=== PATIENT | male | born 1955 | race Caucasian/White ===

== ENCOUNTER 2016-09-16 01:38 | Emergency (ER) | payer OTHER ==
[~2016-09-16] VITALS: Ht 175.3 cm; Wt 141.8 kg
[2016-09-16 01:41] VITALS: BP 158/99; PULSE 90; RESP 20; O2SAT 92
--- NOTE | 2016-09-16 01:57 | ED.REPORT ---
HPI-Dyspnea / Wheezing Date of Service Sep 16, 2016 ED Provider: Alberto Pa MD Patient is a 60 year old male with a history of hypertension who presents to the ED with worsening shortness of breath and chest discomfort that began 1 week ago, waking him from sleep at 1am. Patient states that his symptoms began 1 week ago with cough and chest congestion. Patient reports a productive cough with brown and green sputum. He is unable to lay flat on his back due to shortness of breath, sleeping in his chair instead. He reports increased swelling in his legs but denies calf tenderness. Patient states that he has gained 12 lb in the past 4 days. The patient also has a red, swollen, and tender area on his right chest. He was concerned that he had broken a rib or torn something due to the force of his cough. He states that the chest pain he experiences with cough is especially severe. He was seen at [facility] 2 days ago for this complaint. However the x-ray of his chest was negative. He was given #10 hydrocodone and was discharged home. The patient states that this medication barely helped his symptoms The patient reports a history of reactive airways but denies asthma. He denies smoking cigarettes or marijuana. He has been unable to go to work since onset of symptoms. He did not have a seasonal influenza vaccine this year. Nursing Notes Stated Complaint: SHORT OF BREATH Chief Complaint: Respiratory Distress Nursing Notes Reviewed: Yes Allergies: Coded Allergies: No Known Allergies (Unverified , 09/16/16) Scheduled Benzonatate (Benzonatate) 200 Mg Capsule 200 MG PO TID Hydrochlorothiazide (Hydrochlorothiazide) 12.5 Mg Capsule 12.5 MG PO DAILY Scheduled PRN oxyCODONE-Acetaminophen 5-325 mg (oxyCODONE-Acetaminophen 5-325 mg) 1 Each Tablet 1-2 TAB PO Q6H PRN PRN For Pain General Time Seen by MD: 01:51 Chief Complaint Shortness of breath Hx Obtained From: Patient Arrived By: Walk-in Sudden in Onset?: No Onset Occurred: 1 week ago Symptom Duration: Since onset Location: : Chest right Quality: Painful Severity: Current: Moderate Severity: Maximum: Moderate Recent Healthcare: Recent doctor visit Similar Sx Previous: Yes Past Medical History Past Medical History Reports: Hypertension, Denies: Asthma Past Surgical History none reported Smoking History Never Smoker Social History Drug Use: Denies drug use Other Social History: Good social support, , Local resident Ambulatory Status Independent Review of Systems Respiratory: Reports: Non-productive cough, Prod cough, brown, Prod cough, green, Shortness of breath Cardiovascular: Reports: Chest pain Musculoskeletal: Reports: Extremity swelling, Denies: Extremity pain Complete sys rev & neg: except as marked. Physical Exam Initial Vital Signs Vital Signs (First) Date Time Temp Pulse Resp B/P Pulse Ox O2 Delivery O2 Flow Rate FiO2 09/16/16 01:41 37.2 90 20 158/99 92 Room Air Initial VS: Reviewed, Vital signs abnormal Head / Eyes: Atraumatic, Normocephalic, PERRL ENT: Conjunctiva normal, No scleral icterus Neurologic: Alert, Oriented, Nonfocal Psychiatric: Mood/affect normal, Behavior normal, Normal thought content General/Constitutional: Awake, Alert Appearance / Presentation: Positive: Obese Generally appears edematous. Neck: Supple, No JVD (not appreciated) Respiratory / Chest: Breath sounds NL, Breath sounds = bilat, No respiratory distress, No rales, No rhonchi Wheezing / Retractions: Positive: Wheezing expiratory Tender along the right rib margin, about the anterior axillary line. Cardiovascular: Heart rate NL, Regular rhythm, Heart sounds NL, No murmurs Lower Extremity / Pelvis / MS: Neurologic intact, Vascular intact 1+ edema to the bilateral legs no medial thigh or calf tenderness Skin: Warm, Dry skin is a deep red color throughout, especially on his back Interpretation & Diagnostics Lab Results Interpretation Result Diagram: 09/16/16 0200 09/16/16 0200 Test 09/16/16 02:00 09/16/16 02:20 09/16/16 05:10 White Blood Count 6.8th/mm3 (3.8-10.1) Red Blood Count 4.58mil/mm3 (4.40-5.80) Hemoglobin 14.1g/dL (13.8-17.2) Hematocrit 41.6% (41.0-50.0) Mean Corpuscular Volume 90.8fL (81-100) Mean Corpuscular Hemoglobin 30.8pg (27.0-35.0) Mean Corpuscular Hemoglobin Concent 33.9% (32.0-37.0) Red Cell Distribution Width 12.8% (12.3-15.4) Platelet Count 182bil/L (150-400) Neutrophils (%) (Auto) 66.0% (40-74) Lymphocytes (%) (Auto) 21.0% (14-46) Monocytes (%) (Auto) 7.9% (4-12) Eosinophils (%) (Auto) 4.0% (0-5) Basophils (%) (Auto) 0.4% (0-3) D-Dimer < 0.50mg/L FEU (<0.50) Sodium Level 138mEq/L (134-144) Potassium Level 4.4mEq/L (3.5-5.2) Chloride Level 95mEq/L (97-108) Carbon Dioxide Level 28mmol/L (18-29) Blood Urea Nitrogen 16mg/dL (8-27) Creatinine 0.63mg/dL (0.76-1.27) Estimat Glomerular Filtration Rate 138mL/min (>59) Glucose Level 182mg/dL (60-99) Calcium Level 9.5mg/dL (8.5-10.1) Total Bilirubin 0.6mg/dL (0.0-1.2) Aspartate Amino Transf (AST/SGOT) 47U/L (0-50) Alanine Aminotransferase (ALT/SGPT) 59U/L (0-44) Alkaline Phosphatase 69U/L (25-160) Pro-B-Type Natriuretic Peptide 179.5pg/mL (0-210) Total Protein 7.4g/dL (6.4-8.4) Albumin 4.3g/dL (3.4-5.0) Urine Color Yellow (YELLOW) Urine Appearance Clear (CLEAR,HAZY) Urine pH 6.0 (5.0-8.0) Urine Specific [place] 1.010 (1.003-1.035) Urine Protein Negativemg/dL (NEG,TRACE) Urine Glucose (UA) Negativemg/dL (NEGATIVE) Urine Ketones Negativemg/dL (NEGATIVE) Urine Occult Blood Negative (NEGATIVE) Urine Nitrite Negative (NEGATIVE) Urine Bilirubin Negative (NEGATIVE) Urine Urobilinogen Normalmg/dL (NORMAL) Urine Leukocyte Esterase Negative (NEGATIVE) Urine RBC 0-2/hpf (0-2) Urine WBC 0-5/hpf (0-5) Urine Epithelial Cells Few/hpf (NONE-MOD) Urine Crystals None seen (NONE SEEN) Urine Bacteria Few/hpf (NONE-FEW) Urine Hyaline Casts None/lpf (NONE) Urine Granular Casts None seen (NONE SEEN) Urine Waxy Casts None seen (NONE SEEN) Urine Red Blood Cell Casts None seen (NONE SEEN) Urine White Blood Cell Casts None seen (NONE SEEN) Urine Mucus None seen (None Seen) Urine Trichomonas None seen (NONE SEEN) Urine Yeast None (NONE SEEN) Urinalysis Comment None Urine Culture Reflexed Not indicated Troponin T < 0.010ug/L (0.0-0.011) Lab values outside NL range: no clinical significance. Lab Results Interpretation: Elevated nonfasting glucose, normal troponin 2, normal white count ECG Interpretation ECG Interpretation: Sinus Rhythm, Rate 88 Time: 01:55 Interpreted by: ED physician Normal ECG Interpretation: No acute ischemic changes X-Ray Chest Interpretation Chest Xray Interpretation: Impression: Enlarged mediastinum. Cardiomegaly. View: Portable Interpretation / Wet Read by: Wet read ED physician CT Chest Interpretation Impression: No evidence for PE. Trace right pleural effusion. AMENDMENT: Nonspecific stranding of the subcuteneous fat of the right chest wall. Please correlate with clinical history. Radiologist: Kb Brooks MD 09/16/2016 - 4:03:09 AM PDT Study type: CT pulm angiogram Interpretation / Wet Read by: Interpret - Radiologist Re-Eval/Medical Decision Med Decision/Clinical Course 60-year-old male with chest pain in an area of soreness and swelling in the right lower anterolateral rib cage that is probably from a muscle tear or a costal cartilage injury from coughing. I do not suspect that his chest pain is due to cardiac disease although he has several risk factors. There is CT evidence of a nonspecific process in the abdominal wall in the area of question. His white count is not elevated and there is minimal redness there so I do not suspect infection. He is being discharged home with narcotic pain medicine short course. He will follow up with his primary doctor or return to the emergency room if there is worsening. Source of Hx: Old records Re-Evaluation/Progress #1: Time of Eval: 03:27 Re-Evaluation/Progress Note: Rechecked the patient. Informed the patient of the results of his chest x-ray and labs thus far. He will have a CT Angio of his chest. Patient is improved after he was able to cough up sputum. Re-Evaluation/Progress #2: Time of Eval: 04:48 Re-Evaluation/Progress Note: Rechecked the patient. Discussed the results of his CT scan. Patient will have a repeat Troponin and then a decision about his disposition will be made. Re-Evaluation/Progress #3: Time of Eval: 06:20 Patient Status: Condition improved Re-Evaluation/Progress Note: Repeat troponin was negative. Patient understands and agrees with the plan to be discharged home. Discharge instructions and follow-up discussed. All questions were addressed. Return to the ED warnings given. Consultation : Call Returned at: 04:45 Note: Spoke with [facility] radiology about the patient's CT scan, specially his right chest wall. 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 Counseled Regarding: Diagnosis, Lab results, Need for follow-up, When/why to return to ED Discharge & Departure Impression: Primary Impression: Bronchitis Additional Impressions: Chest wall pain Chest pain with low risk for cardiac etiology Disposition: Home Discharge Condition All VS Reviewed: Yes Condition: Stable Patient Instructions: Acute Bronchitis (ED), Chest Pain (ED) Additional Instructions: No evidence of pneumonia. The cardiac workup that we do in the emergency room was normal to include 2 normal EKGs and 2 and normal troponin test. It is unlikely that any of this pain is due to heart disease. I suspect that the pain in the right side is from cough injury. However if this becomes more swollen and red immediately get it looked at again to make sure it is not infected. Azithromycin 500 mg now then 250 mg daily, prepack dispensed. Benzonatate (Tessalon perles) 200 mg 3 times a day as needed for cough, #15 prescription written. Hydrochlorothiazide water pill 12.5 mg daily for 10 days , #10 prescription written. Oxycodone/APAP 5/325, one or 2 tablets every 4-6 hours as needed for severe pain, #20 prescription written. Follow-up with your regular doctor as needed. Contact me at [phone] between the hours of 9 PM and 6 AM for the next couple nights if you have any questions or concerns. Referrals: Arias Ramirez MD (PCP/Family) Scribe Attestation Portions of this note were transcribed by Christi Escalera. I, Dr. Pa personally performed the history, physical exam and medical decision-making; I reviewed and confirmed the accuracy of the information in the transcribed note. Signed by: Karissa Grace, 09/16/2016 0620 copies to: Arias Ramirez MD, Howard L MD Sep 16, 2016 01:57 Christi Escalera Sep 16, 2016 02:06
[2016-09-16] MEDS ORDERED: Albuterol-Ipratropium 3 mL Inhalation Solution NEB ONE (02:05)
[2016-09-16] MEDS ORDERED: Albuterol 2.5 mg/3 mL Inhalation Solution NEB ONE (02:05)
[2016-09-16] MEDS ORDERED: Ketorolac 15 mg/mL Inj IVPUSH ONE (02:05)
[2016-09-16 02:20] VITALS: BP 171/112; PULSE 102; RESP 26; O2SAT 93
[2016-09-16 02:21] VITALS: PULSE 87; RESP 12; O2SAT 93
[2016-09-16 02:33] LABS: BASOPHILS % (AUTO) 0.4 % (0-3); MONOCYTES % (AUTO) 7.9 % (4-12); Mean Corpuscular Hemoglobin 30.8 pg (27.0-35.0); Mean Corpuscular Volume 90.8 fL (81-100); Platelet Count 182 bil/L (150-400)
[2016-09-16 02:41] LABS: APPEARANCE,URINE CLEAR (CLEAR,HAZY); COLOR,URINE YELLOW (YELLOW); OCCULT BLOOD,URINE NEGATIVE (NEGATIVE); UROBILINOGEN,URINE NORMAL (NORMAL)
[2016-09-16 03:01] VITALS: BP 158/85; PULSE 97; RESP 16; O2SAT 92
[2016-09-16 03:22] LABS: TROPONIN T < 0.010 ug/L (0.0-0.011)
[2016-09-16 04:46] VITALS: BP 152/77; PULSE 93; RESP 19; O2SAT 93
[2016-09-16] MEDS ORDERED: _Azithromycin 250 mg Tablet PO SCH (05:00)
[2016-09-16] MEDS ORDERED: Furosemide 10 mg/mL 2 mL Inj IVPUSH ONE (05:00)
[2016-09-16] MEDS ORDERED: BENZ200C44 PO (05:01)
[2016-09-16] MEDS ORDERED: OXYC1TAB24 PO (05:01)
[2016-09-16] MEDS ORDERED: HYDR12.5 PO (06:18)
[2016-09-16 06:26] VITALS: BP 152/77; PULSE 88; RESP 17; O2SAT 98
--- NOTE | 2016-09-16 08:01 | DRSVH ---
PROCEDURE: X-RAY CHEST ONE VIEW, PORTABLE ([id number]) INDICATIONS: SOB TECHNIQUE: One view of the chest was acquired. COMPARISON: None. FINDINGS: Surgical changes and devices: None. Lungs and pleura: No pleural effusions or pneumothorax. Lungs are clear. Mediastinum: Mediastinal contours appear normal. Heart size is normal. Bones and chest wall: No suspicious bony lesions. Overlying soft tissues appear unremarkable. IMPRESSION: No acute disease Dictated by: Ankush Paz M.D. on 09/16/2016 at 7:59 Approved by: Ankush Paz M.D. on 09/16/2016 at 7:59
--- NOTE | 2016-09-16 08:44 | DRSVH ---
PROCEDURE: CT ANGIO CHEST PULMONARY EMBOLISM ([id number]) INDICATIONS: chest pain, edema, wide mediastinum TECHNIQUE: After the administration of intravenous contrast, 2 mm thick sections acquired from the pulmonary api celestino to the posterior costophrenic angles. 3-dimensional maximum intensity projection (MIP) coronal a nd sagittal reformats were then acquired through the thorax. For radiation dose reduction, the follo wing was used: automated exposure control, adjustment of mA and/or kV according to patient size. COMPARISON: None. FINDINGS: Image quality: Suboptimal opacification of the pulmonary arteries Pulmonary arteries: Pulmonary arteries are normal in size, and demonstrate no gross intraluminal audrey ling defects to suggest central pulmonary embolism. Lungs and pleura: Lungs are clear. Trace right pleural fluid. No pneumothorax. Scattered atelectasis is noted without focal consolidation. Central and peripheral airways are patent. Mediastinum: Heart size is normal, without pericardial effusion. No mediastinal or hilar adenopathy by size criteria. Thoracic aorta is normal in caliber and enhancement. Esophagus is normal in froylan batsheva, without hiatal hernia. Bones and chest wall: No suspicious bony lesions. Ribs and thoracic spine appear intact throughout. Thyroid gland unremarkable. No axillary or supraclavicular adenopathy. Abdomen: Visualized upper abdominal solid organs appear normal in the early arterial phase of enhanc ement. IMPRESSION: No evidence of pulmonary embolism. Trace right pleural fluid and adjacent atelectasis. Dictated by: Ankush Paz M.D. on 09/16/2016 at 8:39 Approved by: Ankush Paz M.D. on 09/16/2016 at 8:43
== END 2016-09-16 06:18 | disposition home or self-care (01) ==
LOC: SED 01:38
DX: J40 Bronchitis, not specified as acute or chronic (principal); R07.89 Other chest pain; I10 Essential (primary) hypertension
CPT/HCPCS: 36415; 71010; 71275; 80053; 81000; 83880; 84484; 85025; 85378; 93005; 96374; 96375; 99285; J1885; J1940; J7613; J7620; Q9967

== ENCOUNTER 2016-09-20 12:05 | Emergency (ER) | payer OTHER ==
[~2016-09-20] VITALS: Ht 175.3 cm; Wt 149.6 kg
[~2016-09-20 12:05] MED LIST: BENZ200C44 PO; HYDR12.5 PO; OXYC1TAB24 PO
[2016-09-20 12:25] VITALS: BP 165/102; PULSE 102; RESP 16
[2016-09-20 12:55] LABS: BASOPHILS % (AUTO) 0.2 % (0-3); EOSINOPHILS % (AUTO) 4.8 % (0-5); MONOCYTES % (AUTO) 9.4 % (4-12); Mean Corpuscular Hemoglobin 30.3 pg (27.0-35.0); Mean Corpuscular Volume 91.1 fL (81-100); NEUTROPHILS % (AUTO) 74.3 % (40-74); Platelet Count 221 bil/L (150-400)
[2016-09-20 13:52] LABS: TROPONIN T < 0.010 ug/L (0.0-0.011)
--- NOTE | 2016-09-20 13:59 | ED.REPORT ---
HPI-Abd Pain M 40 and Over Date of Service Sep 20, 2016 ED Provider: Bernard Greene MD 60 y/o male with a hx of HTN and recent bronchitis presents to the ED complaining of RUQ abdominal pain, secondary to cough, onset 3 weeks ago. The pain radiates to his back. Associated sx include abdominal swelling with ecchymosis on right lower abd, lower extremity edema, 30 lb weight gain in 3 weeks, SOB, chest pain and extremity swelling. The pt was advised to go to the ED today due to extensive abdominal fluid retention. He has no history of liver disease and drinks only 2 beers per week. He does not take Tylenol. Nursing Notes Stated Complaint: SENT BY DOCTOR/ FOLLOW UP Chief Complaint: General Complaint Nursing Notes Reviewed: Yes Allergies: Coded Allergies: No Known Allergies (Unverified , 09/20/16) Scheduled Guaifenesin (Mucinex) 100 Mg Gran.pack 0 PO 5XD Hydrochlorothiazide (Hydrochlorothiazide) 12.5 Mg Capsule 12.5 MG PO DAILY Lisinopril (Lisinopril) 20 Mg Tablet 0 PO BID Sertraline HCl (Sertraline) 20 Mg/1 Ml Oral.conc 0 PO DAILY Simvastatin (Simvastatin) 20 Mg Tablet 0 PO HS General Time Seen by MD: 13:57 Chief Complaint Abdominal pain Hx Obtained From: Patient, Spouse Arrived By: Walk-in Sudden in Onset?: No Onset Occurred: More than a week ago... (3 weeks) Symptom Duration: Since onset Progression since Onset: Constant Location: : Flank right: RUQ Quality: Painful Radiation: : Back Severity: Current: Moderate Severity: Maximum: Moderate Recent Healthcare: Recent doctor visit Similar Sx Previous: No Past Medical History Past Medical History Reports: Hypertension Past Surgical History none reported Smoking History Never Smoker Social History Alcohol Use: 1-3 per week Drug Use: Denies drug use Other Social History: Good social support, , Local resident Ambulatory Status Independent Review of Systems Review of Systems Note: +abdominal distention +30 lb weight gain Respiratory: Reports: Non-productive cough, Shortness of breath Cardiovascular: Reports: Chest pain, Edema GI: Reports: Abdominal pain, Denies: Vomiting Musculoskeletal: Reports: Extremity swelling Complete sys rev & neg: except as marked. Skin: Reports Bruising Physical Exam Initial Vital Signs Vital Signs (First) Date Time Temp Pulse Resp B/P Pulse Ox O2 Delivery O2 Flow Rate FiO2 4/13/17 12:25 165/102 09/20/16 12:25 36.7 102 16 09/20/16 15:53 95 Room Air Initial VS: Reviewed, Vital signs normal Head / Eyes: Atraumatic, Normocephalic, PERRL ENT: Mucous membranes moist, Conjunctiva normal, No scleral icterus Neck: Supple, Full range of motion Neurologic: Alert, Oriented, Nonfocal Psychiatric: Mood/affect normal, Behavior normal, Normal thought content General/Constitutional: Awake, Alert Respiratory / Chest: Breath sounds NL, Breath sounds = bilat, No respiratory distress, No rales, No rhonchi, No wheezing Cardiovascular: Heart rate NL, Regular rhythm, Heart sounds NL, No gallop, No murmurs, No rubs, Cap refill not delayed, Peripheral circulation NL Lower Ext Edema: Positive: Bilateral 1+ Abdomen: Atraumatic Tenderness/Guarding/Rebound: Positive: Tender diffuse Mid epigastric ecchymosis. Dependent right lateral flank ecchymosis Back: Atraumatic, Full range of motion Skin: Atraumatic, Warm, Intact Neurologic: Oriented X3, Speech NL, No motor deficits, No sensory deficits Neck: Atraumatic, Full range of motion Upper Extremity / MS: Atraumatic, Full range of motion Interpretation & Diagnostics Interpretation & Diagnostics: US abdomen: IMPRESSION: Increased hepatic echogenicity noted likely related to fatty infiltration of the liver but other sources of hepatocellular disease cannot be excluded. Recommend clinical correlation. Dictated by: Kt Lyn RRA Interpreted: Lorelei Farooq MD on 09/20/2016 at 16:41 Transcribed by: SHALINI on 09/20/2016 at 16:43 Approved by: Lorelei Farooq MD, PhD on 09/20/2016 at 16:51 Lab Results Interpretation Result Diagram: 09/20/16 1245 09/20/16 1245 Test 09/20/16 12:45 09/20/16 14:26 09/20/16 14:56 White Blood Count 9.4th/mm3 (3.8-10.1) Red Blood Count 4.39mil/mm3 (4.40-5.80) Hemoglobin 13.3g/dL (13.8-17.2) Hematocrit 40.0% (41.0-50.0) Mean Corpuscular Volume 91.1fL (81-100) Mean Corpuscular Hemoglobin 30.3pg (27.0-35.0) Mean Corpuscular Hemoglobin Concent 33.3% (32.0-37.0) Red Cell Distribution Width 13.0% (12.3-15.4) Platelet Count 221bil/L (150-400) Neutrophils (%) (Auto) 74.3% (40-74) Lymphocytes (%) (Auto) 10.5% (14-46) Monocytes (%) (Auto) 9.4% (4-12) Eosinophils (%) (Auto) 4.8% (0-5) Basophils (%) (Auto) 0.2% (0-3) Sodium Level 136mEq/L (134-144) Potassium Level 4.7mEq/L (3.5-5.2) Chloride Level 96mEq/L (97-108) Carbon Dioxide Level 27mmol/L (18-29) Blood Urea Nitrogen 19mg/dL (8-27) Creatinine 0.76mg/dL (0.76-1.27) Estimat Glomerular Filtration Rate 111mL/min (>59) Glucose Level 202mg/dL (60-99) Calcium Level 9.5mg/dL (8.5-10.1) Magnesium Level 2.0mg/dL (1.6-2.6) Total Bilirubin 0.6mg/dL (0.0-1.2) Aspartate Amino Transf (AST/SGOT) 37U/L (0-50) Alanine Aminotransferase (ALT/SGPT) 58U/L (0-44) Alkaline Phosphatase 65U/L (25-160) Troponin T < 0.010ug/L (0.0-0.011) Pro-B-Type Natriuretic Peptide 10.75pg/mL (0-210) Total Protein 7.2g/dL (6.4-8.4) Albumin 3.9g/dL (3.4-5.0) Hold Cantu Top Tube Received (Received) Prothrombin Time 9.7sec (8.1-12.5) Prothromb Time International Ratio 0.91ratio Acetaminophen Level < 15.0ug/mL Rx (10-25) ECG Interpretation ECG Interpretation: Sinus Tachycardia. Rate 100. Old inferior infarct. Time: 13:15 Interpreted by: ED physician Re-Eval/Medical Decision Med Decision/Clinical Course All laboratory data and imaging data reviewed from today and previous visits. No acute change or abnormality is identified to warrant hospitalization or further investigation at this time. The patient feels quite a bit better after the 15 mg of oxycodone administered orally earlier in the visit. I think his weight gain is gingival to simply fluid retention but I do not see evidence of congestive heart failure and therefore do not believe the diuretics are appropriate approach at this time. I will provide sufficient narcotic analgesia and cough suppression to get him into next week and recommended follow -up with next week. Source of Hx: Old records, Family Counseled Regarding: Diagnosis, Lab results, Need for follow-up, When/why to return to ED Discharge & Departure Primary Impression: Chest wall pain Additional Impressions: Cough Viral upper respiratory tract infection Disposition: Home Vital Signs - All Vital Signs Date Time Temp Pulse Resp B/P Pulse Ox O2 Delivery O2 Flow Rate FiO2 09/20/16 15:53 92 120/83 95 Room Air 09/20/16 12:25 36.7 102 16 165/102 09/20/16 12:25 165/102 )( All Prior VS Reviewed: Yes Condition: Stable Patient Instructions: Upper Respiratory Infection (ED) Additional Instructions: No dangerous cause for your cough or abdominal pain is discovered today after thorough investigation. I believe it is safe to treat your symptoms symptomatically with pain medication which will also serve as a potent cough suppressant. I recommend follow-up with next week for further evaluation. The oxycodone will make you constipated and unfit to drive. You should limit the use of this medication as much as you can. Referrals: Nahid Tyson DO (PCP) Arias Ramirez MD (Family) Scribe Attestation Portions of this note were transcribed by Shruthi Lara and Toño Peterson. I, Dr. Greene personally performed the history, physical exam and medical decision-making;I reviewed and confirmed the accuracy of the information in the transcribed note. Signed by Shruthi Lara and Toño Peterson, Karissa. 09/20/16 TIME copies to: Nahid Tyson DO; Arias Ramirez MD, Kirk H MD Sep 20, 2016 13:59 Shruthi Lara Sep 20, 2016 14:32 TOÑO PETERSON Sep 20, 2016 15:20
[2016-09-20] MEDS ORDERED: GUAI100G2 PO (14:01)
[2016-09-20] MEDS ORDERED: LISI-567 PO (14:01)
[2016-09-20] MEDS ORDERED: SIMV20TA4 PO (14:01)
[2016-09-20] MEDS ORDERED: SERT20OR6 PO (14:01)
[2016-09-20 14:33] LABS: INR 0.91 ratio
[2016-09-20 15:53] VITALS: BP 120/83; PULSE 92; O2SAT 95
--- NOTE | 2016-09-20 16:43 | DRSVH ---
PROCEDURE: US ABDOMEN INDICATIONS: abdominal distention TECHNIQUE: Real-time scanning was performed of the abdominal and retroperitoneal organs, with image documentatio n. COMPARISON: None. FINDINGS: Liver length: 17.49 cm Gallbladder Wall Thickness: 1.40 mm CHD: 7.20 mm Spleen length: 16.27 cm Right kidney length: 12.36 cm Left kidney length: 12.58 cm Liver: Liver is diffusely increased in echogenicity. No focal hepatic abnormalities identified. No rmal hepatic size. Gallbladder: Gallbladder. Biliary ducts: Intrahepatic bile ducts are non-dilated. Extrahepatic bile duct caliber is normal. Normal is 6-7 mm or less in diameter, or 10 mm or less post-cholecystectomy. Pancreas: Not visualized. Spleen: Spleen is normal in size and homogeneous in echotexture. Kidneys: Kidneys are normal in size and echotexture. No hydronephrosis or nephrolithiasis. No luanne d masses. Aorta: Not visualized. Iliacs: Not visualized. IVC: Intrahepatic inferior vena cava is patent. Miscellaneous: No free abdominal fluid. IMPRESSION: Increased hepatic echogenicity noted likely related to fatty infiltration of the liver b ut other sources of hepatocellular disease cannot be excluded. Recommend clinical correlation. Dictated by: Kt ROBERTSON Interpreted: Lorelei Farooq MD on 09/20/2016 at 16:41 Transcribed by: SHALINI on 09/20/2016 at 16:43 Approved by: Lorelei Farooq MD, PhD on 09/20/2016 at 16:51
--- NOTE | 2016-09-20 18:03 | DRSVH ---
PROCEDURE: CT ABDOMEN AND PELVIS WITH CONTRAST ([id number]) INDICATIONS: abd pain TECHNIQUE: After the administration of intravenous contrast, 5 mm thick sections acquired from the diaphragm to the symphysis. 5 mm coronal and sagittal reformats were acquired. For radiation dose reduction, the following was used: automated exposure control, adjustment of mA and/or kV according to patient siz e. COMPARISON: None. FINDINGS: Image quality: Excellent. ABDOMEN: Lung bases: Lung bases are clear. Heart size is normal. Solid organs: Hepatic steatosis otherwise liver and spleen are normal in size and enhancement. Gallb ladder negative. Biliary system is non dilated. Pancreas enhances normally. No adrenal nodules. K idneys demonstrate normal size and enhancement, without hydronephrosis. Peritoneum and bowel: Bowel loops demonstrate normal wall thickness and caliber. No free fluid or a ir. Normal appendix. Scattered colonic diverticuli without evidence of acute complication. Nodes and vessels: No retroperitoneal or mesenteric adenopathy by size criteria. Aorta and inferior vena cava are normal in size. Miscellaneous: No ventral hernias. Diffuse pannus subcutaneous edema and skin thickening. PELVIS: Genitourinary: Bladder wall thickness is normal. Miscellaneous: Small fat-containing left inguinal hernia. No adenopathy Bones: No suspicious bony lesions. No vertebral body compression fractures. IMPRESSION: Diffuse pannus subcutaneous edema and skin thickening. Recommend clinical correlation to exclude cell ulitis. Elsewhere, no acute abnormality Hepatic steatosis. Normal appendix. Colonic diverticulosis. Dictated by: Ankush Paz M.D. on 09/20/2016 at 17:54 Approved by: Ankush Paz M.D. on 09/20/2016 at 18:01
[2016-09-20] MEDS ORDERED: OXYC-474 PO (18:36)
[2016-09-20 18:44] VITALS: BP 129/80; PULSE 96; O2SAT 92
== END 2016-09-20 18:45 | disposition home or self-care (01) ==
LOC: SED 12:05
DX: R07.89 Other chest pain (principal); J06.9 Acute upper respiratory infection, unspecified; I10 Essential (primary) hypertension
CPT/HCPCS: 36415; 74177; 76700; 80053; 83735; 83880; 84484; 85025; 85610; 93005; 99285; G0480; Q9967